=== PATIENT | female | born 1995 | race Caucasian/White ===

== ENCOUNTER 2020-08-08 10:39 | Inpatient (IN) | payer OTHER ==
[2020-08-08 11:26] LABS: HCT 40.7 % (37.0-47.0); MCHC 34.4 g/dL (32.0-36.0); MPV 11.6 fL (6.0-9.5); RBC 4.24 M/uL (4.20-5.40); RDW 13.1 % (11.5-14.0)
[2020-08-08 11:41] LABS: ALBUMIN 1.7 g/dL (3.4-5.0); BILIRUBIN - TOTAL 0.3 mg/dL (0.2-1.0); BUN/CREAT RATIO (CALC) 15.3 RATIO; CREATININE 0.85 mg/dL (0.51-0.95); GLOBULIN (CALCULATION) 3.6 g/dL; POTASSIUM 3.7 mmol/L (3.5-5.1); TOTAL PROTEIN 5.3 g/dL (6.4-8.2)
[2020-08-08 12:27] LABS: BILIRUBIN NEGATIVE (NEGATIVE); BLOOD 1+ Ery/uL (NEGATIVE); CLARITY CLEAR (CLEAR); COLOR YELLOW (YELLOW); GLUCOSE (U) NORMAL (NORMAL); LEUKOCYTES NEGATIVE Leu/uL (NEGATIVE); NITRITE NEGATIVE (NEGATIVE); PROTEIN 3+ mg/dL (NEGATIVE); UROBILINOGEN 0.2 mg/dL (0.2-1.0)
[2020-08-08 12:29] LABS: AMPHETAMINES NEGATIVE (NEGATIVE); BARBITURATES NEGATIVE (NEGATIVE); ECSTASY (MDMA) NEGATIVE (NEGATIVE); MARIJUANA (THC) NEGATIVE (NEGATIVE); METHADONE NEGATIVE (NEGATIVE); OPIATES NEGATIVE (NEGATIVE); OXYCODONE NEGATIVE (NEGATIVE)
[2020-08-08 12:35] LABS: AMORPHOUS URATES CRYSTALS TRACE; BACTERIA 1+; URINARY RBC RARE
[2020-08-08 12:36] LABS: URINARY WBC RARE
[2020-08-08 13:32] LABS: URINE CREATININE 40.87 mg/dL (29.00-226.00); URINE TOTAL PROTEIN-RANDOM > 500.0 mg/dL (<11.9)
[2020-08-08 14:48] LABS: CORONAVIRUS 2019 SARS-COV-2 NEGATIVE (NEGATIVE); INFLUENZA A NAA NEGATIVE (NEGATIVE)
== END 2020-08-08 15:25 | disposition other institution (70) | DRG 833 ==
LOC: FOB 10:39 → FOD 11:16 → FOB 11:17
PROVIDERS: ADMIT Obstetrics & Gynecology
DX: O16.2 Unspecified maternal hypertension, second trimester (principal); Z3A.26 26 weeks gestation of pregnancy; O14.22 HELLP syndrome (HELLP), second trimester; E66.9 Obesity, unspecified; O99.212 Obesity complicating pregnancy, second trimester; O99.282 Endocrine, nutritional and metabolic diseases complicating pregnancy, second trimester; E03.9 Hypothyroidism, unspecified; O99.352 Diseases of the nervous system complicating pregnancy, second trimester; G43.909 Migraine, unspecified, not intractable, without status migrainosus; Z79.82 Long term (current) use of aspirin; Z86.59 Personal history of other mental and behavioral disorders; Z20.822 Contact with and (suspected) exposure to COVID-19
CPT/HCPCS: 36415; 80053; 80305; 81001; 82570; 83615; 84156; 84550; J0360; J0610; J0702; J2210; J3475; J3490; J7120; U0002